=== PATIENT | male | born 1960 | race African-American/Black ===

== ENCOUNTER 2017-07-31 13:01 | Emergency (ER) | payer MEDICARE, MEDICAID ==
[~2017-07-31] VITALS: Ht 172.7 cm; Wt 106.4 kg
[2017-07-31 14:16] VITALS: BP 158/90
[2017-07-31] MEDS ORDERED: BACITRACIN ZINC OINT 500U/GM, 0.9 GM ONE (14:32)
== END 2017-07-31 14:33 | disposition home or self-care (01) ==
LOC: ED 14:15
DX: S01.32 Laceration with foreign body of ear (principal); I10 Essential (primary) hypertension; F17.210 Nicotine dependence, cigarettes, uncomplicated; C61 Malignant neoplasm of prostate; X58.XXXD Exposure to other specified factors, subsequent encounter
CPT/HCPCS: 99282

== ENCOUNTER 2018-02-10 18:47 | Emergency (ER) | payer MEDICARE, MEDICAID ==
[~2018-02-10] VITALS: Ht 175.3 cm; Wt 92.0 kg
[2018-02-10 18:59] VITALS: BP 127/91
[2018-02-10 19:50] LABS: BASOPHILS # (AUTO) 0.17 x10^3/uL (0-0.1); BASOPHILS % (AUTO) 3 % (0-1); EOSINOPHILS # (AUTO) 0.06 x10^3/uL (0-0.4); EOSINOPHILS % (AUTO) 1 % (1-7); LYMPHOCYTES # (AUTO) 2.31 x10^3/uL (1-3.4); LYMPHOCYTES % (AUTO) 40 % (22-44); MD NO; MEAN CORPUSCULAR HEMOGLOBIN 29.1 pg (27.5-34.5); MEAN CORPUSCULAR HGB CONC 33.6 g/dL (33.2-36.2); MEAN CORPUSCULAR VOLUME 86.4 fL (81-97); MONOCYTES # (AUTO) 0.76 x10^3/uL (0.2-0.8); MONOCYTES % (AUTO) 13 % (2-9); NEUTROPHILS # (AUTO) 2.41 x10^3/uL (1.8-6.8); NEUTROPHILS % (AUTO) 42 % (42-75); PLATELET COUNT 231 x10^3/uL (130-400); RED BLOOD COUNT 5.46 x10^6/uL (4.38-5.82); RED CELL DISTRIBUTION WIDTH 15.7 % (9.4-14.8)
[2018-02-10 19:58] LABS: ALANINE AMINOTRANSFERASE 55 U/L (12-78); ANION GAP 11 mmol/L (5-15); CALCIUM 8.6 mg/dL (8.5-10.1); CHLORIDE 106 mmol/L (98-107); CREATININE 1.18 mg/dL (0.7-1.3)
[2018-02-10 20:03] LABS: ALKALINE PHOSPHATASE 139 U/L (45-117); BILIRUBIN,TOTAL 0.2 mg/dL (0.2-1.0); TOTAL PROTEIN 8.1 g/dL (6.4-8.2)
== END 2018-02-10 20:09 | disposition left against medical advice (07) ==
LOC: ED 20:03
DX: F10.129 Alcohol abuse with intoxication, unspecified (principal); I10 Essential (primary) hypertension
CPT/HCPCS: 36415; 71045; 80053; 80307; 85025; 99284

== ENCOUNTER 2018-09-08 12:31 | Emergency (ER) | payer MEDICARE, MEDICAID ==
[~2018-09-08] VITALS: Ht 175.3 cm; Wt 109.0 kg
--- NOTE | 2018-09-08 13:00 | NUR ---
PT TO ROOM FROM TRIAGE. HE HAS CHANGED INTO A HOSPITAL GOWN.
--- NOTE | 2018-09-08 13:12 | NUR ---
ERIKA (RN) IS ASSUMING CARE OF THIS PATIENT AT THIS TIME. SBAR REPORT WAS EXCHANGED AT THE BEDSIDE.
[2018-09-08] MEDS ORDERED: ONDANSETRON 2MG/ML, 2ML ONE (13:19)
[2018-09-08] MEDS ORDERED: HYDROmorphone 2 MG/ML, 1ML ONE (13:19)
--- NOTE | 2018-09-08 13:29 | NUR ---
IV ESTABLISHED, DR. GONZALES NOTIFIED TO SEE PATIENT AND PAIN MEDICATIONS ORDERED. PT MADE AWARE UA NEEDED, AND STATES HE WILL ATTEMPT.
[2018-09-08] MEDS ORDERED: ONDANSETRON 2MG/ML, 2ML IVPush ONE (13:30)
[2018-09-08] MEDS ORDERED: HYDROmorphone 2 MG/ML, 1ML IVPush PRN (13:30)
[2018-09-08] MEDS ORDERED: SODIUM CHLORIDE FLUSH 10ML SYR IVF ONE (13:30)
[2018-09-08] MEDS ORDERED: KETOROLAC 30 MG/1 ML ONE (13:34)
[2018-09-08] MEDS ORDERED: LORazepam 2 MG/ML, 1ML ONE (13:35)
--- NOTE | 2018-09-08 13:41 | NUR ---
PT REPORTS NO RELIEF OF PAIN AFTER DILAUDID AND ZOFRAN, CONTINUES MOANING IN BED. DR. GONZALES MADE AWARE AND ADDITIONAL MEDICATION ORDERS RECEIVED AT THIS TIME.
--- NOTE | 2018-09-08 13:43 | NUR ---
RADIOLOGY TO TAKE PT TO CT.
--- NOTE | 2018-09-08 13:52 | NUR ---
ASSUMING CARE OF PT. PT IN CT AT THIS TIME.
[2018-09-08 13:58] LABS: BASOPHILS # (AUTO) 0.04 x10^3/uL (0-0.1); BASOPHILS % (AUTO) 1 % (0-1); EOSINOPHILS % (AUTO) 1 % (1-7); LYMPHOCYTES # (AUTO) 1.59 x10^3/uL (1-3.4); LYMPHOCYTES % (AUTO) 18 % (22-44); MD NO; MEAN CORPUSCULAR HEMOGLOBIN 27.7 pg (27.5-34.5); MEAN CORPUSCULAR HGB CONC 32.5 g/dL (33.2-36.2); MEAN CORPUSCULAR VOLUME 85.3 fL (81-97); MEAN PLATELET VOLUME 7.4 fL (7.4-10.4); MONOCYTES # (AUTO) 1.01 x10^3/uL (0.2-0.8); MONOCYTES % (AUTO) 12 % (2-9); NEUTROPHILS # (AUTO) 6.07 x10^3/uL (1.8-6.8); NEUTROPHILS % (AUTO) 69 % (42-75); PLATELET COUNT 308 x10^3/uL (130-400); RED BLOOD COUNT 4.29 x10^6/uL (4.38-5.82); RED CELL DISTRIBUTION WIDTH 14.2 % (9.4-14.8)
[2018-09-08] MEDS ORDERED: KETOROLAC 30 MG/1 ML IVPush ONE (14:00)
[2018-09-08] MEDS ORDERED: LORazepam 2 MG/ML, 1ML IVPush ONE (14:00)
--- NOTE | 2018-09-08 14:05 | NUR ---
PT RETURNED FROM CT. NAD NOTED. PT REPORTS IMPROVEMENT IN PAIN WITH MEDICATION AND IS REQUESTING FOOD. PT MADE AWARE OF NPO UNTIL ALL LABS/IMAGING RESULTED. PT DEMONSTRATES UNDERSTANDING. SPO2 >90% ON RA. PT AWARE OF NEED FOR UA AND URINAL PROVIDED.
[2018-09-08 14:06] LABS: ALBUMIN 3.4 g/dL (3.4-5.0); ANION GAP 8 mmol/L (5-15); CALCIUM 9.6 mg/dL (8.5-10.1); CHLORIDE 108 mmol/L (98-107)
[2018-09-08 14:10] LABS: ALANINE AMINOTRANSFERASE 15 U/L (12-78); ALKALINE PHOSPHATASE 112 U/L (45-117); BILIRUBIN,TOTAL 0.2 mg/dL (0.2-1.0); CREATININE 1.17 mg/dL (0.7-1.3)
--- NOTE | 2018-09-08 14:52 | NUR ---
PT UNABLE TO PROVIDE UA.
--- NOTE | 2018-09-08 15:07 | NUR ---
PO FLUIDS OKAY PER ERP AND PROVIDED
[2018-09-08 16:05] VITALS: BP 115/60
--- NOTE | 2018-09-08 16:09 | NUR ---
PT RESTING IN GURNEY, EVEN/REGULAR RESPIRATIONS NOTED. PT STATES "I STILL CAN'T PEE". PT DENIES URGE TO URINATE. PT ADMITS HX OF PROSTATE CANCER/BPH, BUT DENIES HX OF RETENTION. BLADDER SCAN: 259ML. PT REFUSING CATH UA AT THIS TIME AND AGREES TO CONTINUE TO ATTEMPT.
--- NOTE | 2018-09-08 16:46 | NUR ---
PT CONTINUES TO BE UNABLE TO PROVIDE UA. REFUSING STRAIGHT CATH UA. ERP AWARE. NO NEW ORDERS RECEIVED.
--- NOTE | 2018-09-08 16:59 | NUR ---
PER ERP, POC IS DC. IV DC'D. PT OFF MONITORING AND ASSISTED TO DRESS. AWAITING DC INSTRUCTIONS.
--- NOTE | 2018-09-08 17:52 | NUR ---
DC EDUCATION PROVIDED, PT DEMONSTRATES UNDERSTANDING. PT TRANSFERED SELF TO WHEELCHAIR. WHEELED TO DC WITH RN. FRIEND PRESENT TO TRANSPORT PT HOME.
== END 2018-09-08 17:54 | disposition home or self-care (01) ==
LOC: ED 14:16
DX: R10.11 Right upper quadrant pain (principal); R10.31 Right lower quadrant pain; Z87.891 Personal history of nicotine dependence; Z85.46 Personal history of malignant neoplasm of prostate; I10 Essential (primary) hypertension
CPT/HCPCS: 36415; 74176; 80053; 83605; 85025; 87040; 96374; 96375; 99284; J1170; J1885; J2060; J2405